=== PATIENT | male | born 1965 | race Caucasian/White ===

== ENCOUNTER → 2020-03-31 | Outpatient (CLI) | payer BC ==
[2020-03-31 11:54] LABS: BASO % 0.4 % (0.0-1.0); EOS # 0.1 10^3/uL (0.0-0.5); EOS % 1.2 % (0.0-3.0); HEMATOCRIT 43.1 % (42.0-52.0); HEMOGLOBIN 14.3 g/dl (13.5-17.5); LYMPH # 1.3 10^3/uL (1.5-5.0); LYMPH % 17.7 % (24.0-44.0); MEAN CORPUSCULAR HEMOGLOBIN 29.7 pg (27.0-33.0); MEAN CORPUSCULAR HGB CONC 33.2 g/dl (32.0-36.5); MEAN CORPUSCULAR VOLUME 89.6 fl (80.0-96.0); MONO # 0.7 10^3/uL (0.0-0.8); MONO % 9.8 % (0.0-5.0); NEUTROPHILS # 5.2 10^3/uL (1.5-8.5); NEUTROPHILS % 70.6 % (36.0-66.0); PLATELET COUNT, AUTOMATED 266 10^3/uL (150-450); RED BLOOD COUNT 4.81 10^6/uL (4.30-6.10); WHITE BLOOD COUNT 7.3 10^3/uL (4.0-10.0)
[2020-03-31 12:10] LABS: ALBUMIN 3.8 GM/DL (3.2-5.2); ALT/SGPT 36 U/L (12-78); BILIRUBIN,TOTAL 0.4 MG/DL (0.2-1.0); BLOOD UREA NITROGEN 19 MG/DL (7-18); CALCIUM LEVEL 9.2 MG/DL (8.5-10.1); CARBON DIOXIDE LEVEL 29 MEQ/L (21-32); CHLORIDE LEVEL 107 MEQ/L (98-107); CHOLESTEROL LEVEL 185 MG/DL (<200); CREATININE FOR GFR 0.87 MG/DL (0.70-1.30); GLOMERULAR FILTRATION RATE > 60.0 (>56); GLUCOSE, FASTING 104 MG/DL (70-100); HDL CHOLESTEROL 74 MG/DL (>40); LDL CHOLESTEROL 100 MG/DL (<100); NON-HDL-C 111 MG/DL; POTASSIUM SERUM 4.8 MEQ/L (3.5-5.1); SODIUM LEVEL 140 MEQ/L (136-145); TOTAL PROTEIN 7.1 GM/DL (6.4-8.2); TRIGLYCERIDES LEVEL 56 MG/DL (<150)
--- NOTE | 2020-04-08 09:46 | REPPI ---
LUMBOSACRAL SPINE SERIES CLINICAL: Back pain. TECHNIQUE: AP, lateral, bilateral oblique, and cone down views of the lumbosacral spine. FINDINGS: Alignment and lordosis maintained. No acute fracture/compression injury or subluxation. Moderate degenerative changes primarily involving L5-S1, L4-5, and L3-4 include endplate sclerosis, marginal spurring, disc space narrowing, and mild hypertrophic facet changes. IMPRESSION: Moderate degenerative changes from L3-4 through L5-S1. MTDD
== END ==
LOC: M PLAIMG 08:30
PROVIDERS: ATTEND Nurse Practitioner Family
DX: M51.36 Other intervertebral disc degeneration, lumbar region (principal); M51.37 Other intervertebral disc degeneration, lumbosacral region; Z13.220 Encounter for screening for lipoid disorders; Z13.228 Encounter for screening for other metabolic disorders

== ENCOUNTER → 2020-04-16 | Outpatient (CLI) | payer OTHER ==
--- NOTE | 2020-04-16 08:10 | REPVR ---
PROCEDURE INFORMATION: Exam: MR Lumbar Spine Without Contrast. Exam date and time: 04/16/2020 6:47 AM Age: 54 years old Clinical indication: Low back pain; Additional info: Other intervertebral disc degeneration, lumbar reg TECHNIQUE: Imaging protocol: Multiplanar magnetic resonance images of the lumbar spine without intravenous contrast. COMPARISON: CR SPINE LS COMPLETE 03/31/2020 8:50 AM FINDINGS: Vertebrae: Vertebral heights are maintained. Modic type 2 changes are seen in the endplates of L5/S1. Small benign appearing 5 mm hemangioma in L2 vertebral body. Minimal retrolisthesis of L4 on L5. Spinal cord: Normal signal. No cord compression. L1-L2: No significant disc disease. No significant spinal canal stenosis. No neural foraminal stenosis. L2-L3: Mild diffuse disc bulge, bilateral facet joint arthropathy and ligamentum flavum hypertrophy without any significant central spinal canal stenosis or neural foraminal narrowing. L3-L4: Diffuse disc bulge, bilateral facet joint arthropathy and ligamentum flavum hypertrophy resulting in mild indentation on thecal sac and mild to moderate bilateral neural foraminal narrowing, right greater than left. L4-L5: Loss of disc space, bilateral facet joint arthropathy and ligamentum flavum hypertrophy, disc desiccation, diffuse disc bulge with right paracentral disc protrusion measuring 6.9 x 8.3 mm resulting in mild central spinal canal stenosis, severe right lateral recess narrowing, and moderate to severe bilateral neural foraminal narrowing with impingement of traversing L5 nerve root in the right lateral recess and abutment of exiting bilateral L4 nerve roots. L5-S1: Loss of disc space, disc desiccation, diffuse disc bulge, bilateral facet joint arthropathy and ligamentum flavum hypertrophy resulting in mild bilateral neural foraminal narrowing, right greater than left. Mild indentation on thecal sac. Soft tissues: Unremarkable. IMPRESSION: No acute fracture or traumatic subluxation. Multilevel degenerative disc disease as described in detail above. Please see above dictation for individual levels. Electronically signed by: Latoya Erickson On 04/16/2020 08:09:38 AM
== END ==
LOC: M RAD 06:44
PROVIDERS: ATTEND Nurse Practitioner Family
DX: M51.36 Other intervertebral disc degeneration, lumbar region (principal); M54.16 Radiculopathy, lumbar region; M51.37 Other intervertebral disc degeneration, lumbosacral region; M51.27 Other intervertebral disc displacement, lumbosacral region; M51.26 Other intervertebral disc displacement, lumbar region

== ENCOUNTER 2024-09-01 14:16 | Emergency (ER) | payer OTHER ==
[~2024-09-01] VITALS: Ht 172.7 cm; Wt 78.7 kg
[2024-09-01 14:34] VITALS: BP 134/92; TEMP 97.8; O2SAT 100
[2024-09-01 18:08] LABS: BASO % 0.3 % (0.0-1.0); EOS # 0.1 10^3/uL (0.0-0.5); HEMATOCRIT 43.2 % (42.0-52.0); HEMOGLOBIN 14.8 g/dl (13.5-17.5); LYMPH # 1.6 10^3/uL (1.5-5.0); LYMPH % 13.5 % (24.0-44.0); MEAN CORPUSCULAR HGB CONC 34.3 g/dl (32.0-36.5); MEAN CORPUSCULAR VOLUME 87.4 fl (80.0-96.0); MONO # 0.7 10^3/uL (0.0-0.8); MONO % 6.2 % (2.0-8.0); NEUTROPHILS # 9.2 10^3/uL (1.5-8.5); NEUTROPHILS % 78.6 % (36.0-66.0); PLATELET COUNT, AUTOMATED 299 10^3/uL (150-450); RED BLOOD COUNT 4.94 10^6/uL (4.30-6.10); WHITE BLOOD COUNT 11.7 10^3/uL (4.0-10.0)
[2024-09-01 18:26] LABS: LIPASE 30 U/L (12-53)
[2024-09-01 18:28] LABS: ALBUMIN 4.2 G/DL (3.2-5.2); ALKALINE PHOSPHATASE 62 U/L (40-129); ALT/SGPT 27 U/L (7.0-40); AST/SGOT 17 U/L (<34); BILIRUBIN,DIRECT 0.3 MG/DL (<0.4); BILIRUBIN,TOTAL 0.9 MG/DL (0.3-1.2); BLOOD UREA NITROGEN 14 MG/DL (9-23); CARBON DIOXIDE LEVEL 28 MMOL/L (20-31); CHLORIDE LEVEL 105 MMOL/L (98-107); GLOMERULAR FILTRATION RATE > 60.0 (>56); GLUCOSE, FASTING 93 MG/DL (60-100); POTASSIUM SERUM 4.6 MMOL/L (3.5-5.1); SODIUM LEVEL 143 MMOL/L (136-145); TOTAL PROTEIN 7.7 G/DL (5.7-8.2)
== END 2024-09-01 19:15 | disposition left against medical advice (07) ==
LOC: M ED 14:16
DX: Z53.21 Procedure and treatment not carried out due to patient leaving prior to being seen by health care provider (principal)